=== PATIENT | female | born 1995 | race Caucasian/White ===

== ENCOUNTER → 2017-11-21 | Outpatient (CLI) | payer OTHER ==
[~2017-11-21] MED LIST: ISOVUE-370 76% 100ML VIAL (Q9967) As Ordered
== END ==
LOC: M RADPRO 13:34
DX: N97.9 Female infertility, unspecified (principal)
CPT/HCPCS: 58340

== ENCOUNTER 2018-05-22 18:22 | Emergency (ER) | payer OTHER | END 2018-05-23 00:11 | disposition home or self-care (01) | LOC: M ED 05-23 00:11 | DX: O99.112 Other diseases of the blood and blood-forming organs and certain disorders involving the immune mechanism complicating pregnancy, second trimester (principal); L95.9 Vasculitis limited to the skin, unspecified; Z88.0 Allergy status to penicillin; Z3A.27 27 weeks gestation of pregnancy | CPT/HCPCS: 93971 ==

== ENCOUNTER → 2018-05-22 | Outpatient (CLI) | payer OTHER ==
[2018-05-25 11:13] LABS: HEPATITIS C VIRUS ABY INDEX 0.1 INDEX (<0.8)
[2018-05-25 11:13] LABS: HEPATITIS A ANTIBODY IGM NEGATIVE (NEGATIVE); HEPATITIS B CORE ANTIBODY IGM NEGATIVE (NEGATIVE); HEPATITIS B SURFACE ANTIGEN NEGATIVE (NEGATIVE); HIV 1&2 SCREEN CENTAUR NEGATIVE (NEGATIVE)
== END ==
LOC: M WUC 13:35
DX: Z11.59 Encounter for screening for other viral diseases (principal); W46.1XXA Contact with contaminated hypodermic needle, initial encounter
CPT/HCPCS: 87340

== ENCOUNTER 2018-08-15 12:16 | Outpatient (CLI) | payer OTHER | END 2018-08-15 13:21 | disposition home or self-care (01) | LOC: M LDO 12:16 | DX: O47.9 False labor, unspecified (principal); Z3A.39 39 weeks gestation of pregnancy | CPT/HCPCS: 59025 ==

== ENCOUNTER 2018-08-15 17:10 | Inpatient (IN) | payer OTHER ==
[2018-08-15 17:27] LABS: HEMATOCRIT 40.7 % (36.0-47.0); HEMOGLOBIN 14.3 g/dl (12.0-15.5); MEAN CORPUSCULAR HEMOGLOBIN 30.8 pg (27.0-33.0); MEAN CORPUSCULAR HGB CONC 35.1 g/dl (32.0-36.5); MEAN CORPUSCULAR VOLUME 87.5 fl (80.0-96.0); PLATELET COUNT, AUTOMATED 259 10^3/uL (150-450); RED BLOOD COUNT 4.65 10^6/uL (4.00-5.40); RED CELL DISTRIBUTION WIDTH 13.1 % (11.5-14.5); WHITE BLOOD COUNT 18.2 10^3/uL (4.0-10.0)
[2018-08-15] MEDS: LR 1,000 ML IV ×2 (17:30→18:00)
[2018-08-15] MEDS: NALBUPHINE HCL 10 MG/ML AMP (J2300) IV (17:45)
[2018-08-15] MEDS: PROMETHAZINE INJ 25 MG/ML VIAL (J2550) IV (17:45)
[2018-08-15] MEDS ORDERED: NALBUPHINE HCL 10 MG/ML AMP (J2300) IM (17:45)
[2018-08-15] MEDS: LACTATED RINGER'S 1000 ML IV (17:49)
[2018-08-15] MEDS ORDERED: FENTANYL 2MCG/ML ROPIVACAINE 0.2% IN 0.9% NACL 100ML IVBAG As Ordered (19:01)
[2018-08-15] MEDS ORDERED: ePHEDrine SULFATE 25 MG/5 ML(5MG/ML) SYRINGE As Ordered (19:10)
[2018-08-15] MEDS ORDERED: TERBUTALINE SULFATE 1 MG/ML VIAL (J3105) As Ordered (19:34)
[2018-08-15] MEDS ORDERED: ONDANSETRON 4MG/2ML VIAL (J2405) IV (22:45)
[2018-08-15] MEDS ORDERED: diphenhydrAMINE INJ 50MG/ML VIAL (J1200) IV (22:45)
[2018-08-15] MEDS ORDERED: LACTATED RINGER'S 1000 ML IV (22:45)
[2018-08-15] MEDS ORDERED: FENTANYL/ROPIVACAINE/NACL BAG 100 ML EPIDURAL (22:45)
[2018-08-15] MEDS ORDERED: NALOXONE INJ 0.4 MG/1 ML VIAL (J2310) IV (22:45)
[2018-08-15] MEDS ORDERED: EPIDURAL COMMENT XX (22:45)
[2018-08-15] MEDS ORDERED: EPIDURAL/PCA KEYS XX (22:45)
[2018-08-15] MEDS ORDERED: ePHEDrine SULFATE 25 MG/5 ML(5MG/ML) SYRINGE IV (22:45)
[2018-08-15] MEDS ORDERED: REFRIGERATOR IV KEYS XX (22:45)
[2018-08-16] MEDS ORDERED: ACETAMINOPHEN 500 MG TAB As Ordered (00:18)
[2018-08-16] MEDS: ACETAMINOPHEN 500 MG TAB PO (00:26)
[2018-08-16] MEDS ORDERED: ceFAZolin 2 GM/D5W 50 ML IV BAG (J0690 PER 500MG) As Ordered (00:34)
[2018-08-16] MEDS ORDERED: CLINDAMYCIN 900 MG/50 ML PREMIX BAG As Ordered (00:35)
[2018-08-16] MEDS: CLINDAMYCIN 900 MG in APPROPRIATE DILUENT 1 EA IV (00:48)
[2018-08-16] MEDS ORDERED: LIDOCAINE PRES-FREE 2% 10ML AMP As Ordered ×2 (00:52→00:53)
[2018-08-16] MEDS ORDERED: OXYTOCIN INJ 10 UNITS/ML VIAL (J2590) As Ordered ×4 (00:53)
[2018-08-16] MEDS ORDERED: EPINEPHrine INJ 1 MG/ML 1ML AMP As Ordered (00:53)
[2018-08-16] MEDS: BICITRA 30ML SOLN UDC PO (00:55)
[2018-08-16] MEDS ORDERED: OXYTOCIN 30 UNITS IN 0.9% NaCl 500ML IV BAG (J2590) As Ordered (01:29)
[2018-08-16] MEDS ORDERED: ONDANSETRON 4MG/2ML VIAL (J2405) IV ×3 (01:30→02:00)
[2018-08-16] MEDS ORDERED: NALBUPHINE HCL 10 MG/ML AMP (J2300) IV ×2 (01:30→02:00)
[2018-08-16] MEDS ORDERED: METOCLOPRAMIDE INJ 10MG/2ML VIAL (J2765) IV (01:30)
[2018-08-16] MEDS ORDERED: NALOXONE INJ 0.4 MG/1 ML VIAL (J2310) IV ×2 (01:30)
[2018-08-16] MEDS ORDERED: KETOROLAC 60 MG/2 ML VIAL (J1885) As Ordered (01:33)
[2018-08-16] MEDS ORDERED: dexameTHASONE 4 MG/ML 1ML VIAL (J1100) As Ordered (01:33)
[2018-08-16] MEDS ORDERED: ONDANSETRON 4MG/2ML VIAL (J2405) As Ordered (01:33)
[2018-08-16] MEDS ORDERED: MORPHINE PRES-FREE INJ 10 MG/10 ML VIAL (J2274) As Ordered (01:34)
[2018-08-16] MEDS: OXYTOCIN DRIP 30 UNITS in APPROPRIATE DILUENT 1 EA IV (01:56)
[2018-08-16] MEDS ORDERED: fentaNYL 100 MCG/2 ML INJECTION (J3010) IV (02:00)
[2018-08-16] MEDS ORDERED: MEASLES,MUMPS,RUBELLA VACCINE INJ (MMR-II) (90707) SC (02:00)
[2018-08-16] MEDS ORDERED: RHOGAM 300 MCG (1500 IU) INJ (J2790) IM (02:00)
[2018-08-16 02:10] LABS: CORD GAS ABE A -5.4; CORD GAS O2 SAT A 23.7 %; CORD GAS PCO2 A 50.6 mmHg; CORD GAS PH A 7.257 UNITS; CORD GAS PO2 A 14.7 mmHg; CORD GAS SBC A 18.4 MEQ/L; CORD GAS TCO2 A 23.6 MEQ/L
[2018-08-16 02:11] LABS: CORD GAS HCO3 V 22.4 MEQ/L; CORD GAS O2 SAT V 40.3 %; CORD GAS PCO2 V 45.8 mmHg; CORD GAS PH V 7.308 UNITS; CORD GAS SBC V 19.8 MEQ/L; CORD GAS TCO2 V 23.8 MEQ/L
[2018-08-16] MEDS: LR 500 ML IV (05:42)
[2018-08-16] MEDS ORDERED: GENTAMICIN 80 MG in APPROPRIATE DILUENT 1 EA IV (06:00)
[2018-08-16] MEDS: LR 1,000 ML IV (06:30)
[2018-08-16] MEDS: KETOROLAC 30 MG/ML VIAL (J1885) IV ×3 (08:15→20:14)
[2018-08-16] MEDS: PRENATAL VITAMINS CHEWABLE TABLET PO (08:15)
[2018-08-16] MEDS: DOCUSATE SODIUM 100 MG CAP PO ×2 (08:15→20:15)
[2018-08-17] MEDS: IBUPROFEN 800 MG TAB PO ×3 (03:21→19:52)
[2018-08-17] MEDS: PERCOCET 5MG/325MG TAB PO ×4 (03:22→19:52)
[2018-08-17 07:18] LABS: HEMATOCRIT 30.9 % (36.0-47.0); MEAN CORPUSCULAR HEMOGLOBIN 30.8 pg (27.0-33.0); MEAN CORPUSCULAR HGB CONC 33.7 g/dl (32.0-36.5); MEAN CORPUSCULAR VOLUME 91.4 fl (80.0-96.0); PLATELET COUNT, AUTOMATED 185 10^3/uL (150-450); RED BLOOD COUNT 3.38 10^6/uL (4.00-5.40); RED CELL DISTRIBUTION WIDTH 13.6 % (11.5-14.5); WHITE BLOOD COUNT 13.3 10^3/uL (4.0-10.0)
[2018-08-17 07:29] LABS: HEMOGLOBIN 10.4 g/dl (12.0-15.5)
[2018-08-17] MEDS: PRENATAL VITAMINS CHEWABLE TABLET PO (08:10)
[2018-08-17] MEDS: DOCUSATE SODIUM 100 MG CAP PO ×2 (08:10→19:52)
[2018-08-18] MEDS: PERCOCET 5MG/325MG TAB PO ×2 (00:27→06:48)
[2018-08-18] MEDS: IBUPROFEN 800 MG TAB PO (04:28)
[2018-08-18] MEDS: PRENATAL VITAMINS CHEWABLE TABLET PO (09:00)
[2018-08-18] MEDS: DOCUSATE SODIUM 100 MG CAP PO (09:30)
== END 2018-08-18 12:05 | disposition home or self-care (01) | DRG 773 ==
LOC: M LDI 17:10 → M OBS 08-16 03:29
PROVIDERS: Obstetrics & Gynecology
PROC: 10D00Z1 Extraction of Products of Conception, Low, Open Approach (ICD-10-PCS; principal; 2018-08-16 01:00)
DX: O62.0 Primary inadequate contractions (principal); O76 Abnormality in fetal heart rate and rhythm complicating labor and delivery; Z3A.39 39 weeks gestation of pregnancy; Z37.0 Single live birth

== ENCOUNTER → 2019-01-22 | Outpatient (REF) | payer OTHER ==
[~2019-01-22] MED LIST changes: +COLA100C5 PO; +IBUP-1114 PO; -ISOVUE-370 76% 100ML VIAL (Q9967) As Ordered; +OXYC1TAB23 PO; +PRENTAB29; +RIGHTAB2
== END ==
LOC: M SFHCLERA 10:59
PROVIDERS: ATTEND Nurse Practitioner Family
DX: R53.81 Other malaise (principal)

== ENCOUNTER → 2019-06-05 | Outpatient (REF) | payer OTHER | LOC: M SFHCLERA 11:24 | PROVIDERS: ATTEND Physician Assistant | DX: J02.9 Acute pharyngitis, unspecified (principal) ==

== ENCOUNTER → 2019-06-05 | Outpatient (CLI) | payer OTHER ==
--- NOTE | 2019-06-05 13:51 | REP ---
CHEST PA AND LATERAL: 06/05/2019. Clinical history: Cough and dyspnea. Findings: No prior study. A few cuffed bronchi in the perihilar regions noted on the lateral view without effusion, infiltrate, atelectasis or mass. The heart, mediastinal and hilar contours were normal. Aorta and airway intact. Bones unremarkable. No free air under the diaphragm. Impression: 1. Minor perihilar changes of bronchitis or reactive airway disease. No dense consolidation or effusion. Electronically Signed by Rajan Eason MD 06/05/2019 07:40 P
== END ==
LOC: M LRY 11:54
PROVIDERS: ATTEND Physician Assistant
DX: R91.8 Other nonspecific abnormal finding of lung field (principal); R05 Cough
CPT/HCPCS: 71046; 87880; G0463